=== PATIENT | female | born 2000 | race Caucasian/White ===

== ENCOUNTER 2021-08-11 10:56 | Emergency (ER) | payer OTHER ==
[~2021-08-11 10:56] MED LIST: COLACE 100MG C100 MG PO; IBUPROFEN600 MG PO; NORCO 5-325 TA1 EACH PO; SPRINTEC 28 DA1 EACH PO; ZITHROMAX250 MG PO
[2021-08-11 12:00] LABS: HEMOGLOBIN 14.7 gm/dl (12.3-15.3); RED BLOOD COUNT 5.05 M/UL (4.00-5.10); WHITE BLOOD COUNT 10.3 K/UL (4.5-11.0)
[2021-08-11 12:36] LABS: BUN/CREATININE RATIO 17 (0-10)
[2021-08-11] MEDS ORDERED: PREDNISONE 20 M20 MG PO (14:35)
[2021-08-11] MEDS ORDERED: ZITHROMAX250 MG PO (14:35)
[2021-08-11] MEDS ORDERED: PROAIR HFA8.5 GM INH (14:35)
== END 2021-08-11 16:05 | disposition home or self-care (01) ==
LOC: ER1 10:56
PROVIDERS: Physician Assistant
DX: J98.01 Acute bronchospasm (principal); J40 Bronchitis, not specified as acute or chronic; F17.200 Nicotine dependence, unspecified, uncomplicated
CPT/HCPCS: 71045; 80053; 82550; 82553; 84484; 85025; 93005; 94640; 94664; 96374; 99285; J2930

== ENCOUNTER 2022-02-01 13:37 | Emergency (ER) | payer OTHER ==
[~2022-02-01 13:37] MED LIST changes: +PREDNISONE 20 M20 MG PO; +PROAIR HFA8.5 GM INH
[2022-02-01 16:44] LABS: HEMOGLOBIN 14.4 gm/dl (12.3-15.3); RED BLOOD COUNT 4.81 M/UL (4.00-5.10); WHITE BLOOD COUNT 12.4 K/UL (4.5-11.0)
[2022-02-01 17:05] LABS: BUN/CREATININE RATIO 15 (0-10)
== END 2022-02-01 19:25 | disposition home or self-care (01) ==
LOC: ER1 13:37
PROVIDERS: Emergency Medicine
DX: S30.1XXA Contusion of abdominal wall, initial encounter (principal); W19.XXXA Unspecified fall, initial encounter; Y92.009 Unspecified place in unspecified non-institutional (private) residence as the place of occurrence of the external cause
CPT/HCPCS: 80048; 84703; 85025; 99284; Q9967